=== PATIENT | male | born 1960 | race Caucasian/White ===

== ENCOUNTER 2020-08-05 11:51 | Outpatient (CLI) | payer OTHER | END 2020-08-05 11:52 | disposition home or self-care (01) | LOC: CSHRAD 11:51 | PROVIDERS: ATTEND Neurological Surgery | DX: M54.5 Low back pain (principal); M43.16 Spondylolisthesis, lumbar region; M47.816 Spondylosis without myelopathy or radiculopathy, lumbar region | CPT/HCPCS: 72100 ==

== ENCOUNTER 2021-05-10 13:22 | Outpatient (CLI) | payer BC | END 2021-05-10 13:23 | disposition home or self-care (01) | LOC: CSHCT 13:22 | PROVIDERS: ATTEND Family Medicine | DX: Z12.2 Encounter for screening for malignant neoplasm of respiratory organs (principal); Z87.891 Personal history of nicotine dependence; R91.8 Other nonspecific abnormal finding of lung field | CPT/HCPCS: 71271 ==

== ENCOUNTER 2021-09-30 08:38 | Outpatient (CLI) | payer OTHER | END 2021-09-30 08:39 | disposition home or self-care (01) | LOC: CSHCT 08:38 | PROVIDERS: ATTEND Internal Medicine Hematology & Oncology | DX: C34.82 Malignant neoplasm of overlapping sites of left bronchus and lung (principal); R91.8 Other nonspecific abnormal finding of lung field; R91.1 Solitary pulmonary nodule | CPT/HCPCS: 71275 ==